=== PATIENT | female | born 1965 | race Caucasian/White ===

== ENCOUNTER 2021-01-26 19:44 | Observation (INO) ==
[2021-01-26 20:28] LABS: Basophils % 0.3 %
[2021-01-26 20:58] LABS: Basophils # 0.1 K/mcL (0.0-0.2); Basophils % 0.5 %; Eosinophils % 0.1 %; Hematocrit 41.8 % (35.3-44.9); Hemoglobin 13.7 g/dL (11.5-15.4); Immature Granulocytes % 0.3 % (0-4); Lymphocytes # 1.7 K/mcL (0.6-4.6); Lymphocytes % 18.4 %; Mean Corpuscular HGB Conc 32.8 g/dL (31.6-35.5); Mean Corpuscular Volume 91.7 fL (83.0-100.0); Mean Platelet Volume 10.1 fL (9.4-12.4); Monocytes # 0.7 K/mcL (0.0-1.3); Monocytes % 7.9 %; Neutrophils # 6.9 K/mcL (1.6-8.9); Platelet Count 307 K/mcL (140-400); Red Blood Count 4.56 M/mcL (3.82-4.97); Red Cell Distribution Width 12.6 % (11.5-14.5); Segmented Neutrophils % 72.8 %; White Blood Count 9.4 K/mcL (4.3-11.1)
[2021-01-26 21:08] LABS: BUN/Creatinine Ratio 13 (6-26); Blood Urea Nitrogen 8 mg/dL (6-20); Calcium 9.5 mg/dL (8.6-10.3); Carbon Dioxide 25 mEq/L (23-29); Chloride 104 mEq/L (98-107); Glucose 145 mg/dL (70-105); Osmolality,Calculated 287 (280-300); Potassium 3.5 mEq/L (3.5-5.1); Sodium 138 mEq/L (136-145); eGFR For African Americans > 60 (> 60); eGFR For Non-African Americans > 60 (> 60)
[2021-01-26 21:09] LABS: Troponin I < 0.03 ng/mL (< 0.04)
[2021-01-26] MEDS ORDERED: Ondansetron 4 MG/2 ML VIAL IVP ONE (22:18)
[2021-01-26] MEDS ORDERED: Famotidine 20 MG/2 ML VIAL IVP ONE (22:18)
[2021-01-26] MEDS ORDERED: Aspirin 81 MG TAB.CHEW PO ONE (22:19)
[2021-01-26] MEDS ORDERED: *HR* FentaNYL (PF) 100 MCG/2 ML VIAL IVP ONE (23:59)
[2021-01-27] MEDS ORDERED: Isovue-370 500 ML BOTTLE IVP ONE (03:17)
[2021-01-27] MEDS ORDERED: Nitroglycerin 0.4 MG TAB.SUBL SL PRN (03:30)
[2021-01-27] MEDS ORDERED: Ondansetron 4 MG/2 ML VIAL IVP PRN (03:33)
[2021-01-27] MEDS ORDERED: Naloxone 0.4 MG/ML INJ IVP PRN (03:33)
[2021-01-27] MEDS ORDERED: Acetaminophen 325 MG TABLET PO PRN (03:33)
[2021-01-27] MEDS ORDERED: Morphine Sulfate 2 MG/ML SYRINGE IVP PRN (04:00)
[2021-01-27 04:33] LABS: BUN/Creatinine Ratio 13 (6-26); Blood Urea Nitrogen 8 mg/dL (6-20); Calcium 9.3 mg/dL (8.6-10.3); Carbon Dioxide 25 mEq/L (23-29); Chloride 107 mEq/L (98-107); Chol/HDL Ratio 4.3 (0-4.9); Cholesterol 237 mg/dL (< 200); Glucose 122 mg/dL (70-105); HDL Cholesterol 55 mg/dL (40-59); LDL Cholesterol,Calculated 158 mg/dL (< 100); Osmolality,Calculated 290 (280-300); Potassium 3.6 mEq/L (3.5-5.1); Sodium 140 mEq/L (136-145); Triglycerides 118 mg/dL (< 150); eGFR For African Americans > 60 (> 60); eGFR For Non-African Americans > 60 (> 60)
[2021-01-27 05:08] LABS: Thyroid Stimulating Hormone 3.705 mcIU/mL (0.340-5.600)
[2021-01-27] MEDS: *HR* Heparin 5,000 UNIT/ML VIAL SQ SCH ×2 (05:20→15:35)
[2021-01-27] MEDS ORDERED: Famotidine 20 MG/2 ML VIAL IVP SCH (06:00)
[2021-01-27] MEDS ORDERED: Regadenoson 0.4 MG/5 ML SYRINGE IVP ONE (06:02)
[2021-01-27 06:24] LABS: Estimated Average Glucose 134 mg/dl; Hemoglobin A1C 6.3 %
[2021-01-27] MEDS ORDERED: Aspirin Enteric Coated 81 MG Tablet PO SCH (09:00)
[2021-01-27 10:15] VITALS: PULSE 65; O2SAT 97
[2021-01-27 15:20] VITALS: BP 144/84; TEMP 97.9
[2021-01-27] MEDS ORDERED: carvediloL 6.25 MG TABLET PO SCH ×3 (17:00)
== END 2021-01-27 16:58 | disposition home or self-care (01) ==
LOC: 3BNU 19:44 → EMEROOARM 19:44 → SUATTDRO 01-27 01:09 → 3BNU 01-27 02:50
PROVIDERS: ADMIT Internal Medicine; ATTEND Internal Medicine